=== PATIENT | male | born 1985 | race African-American/Black ===

== ENCOUNTER 2017-03-01 21:02 | Emergency (ER) | payer MEDICAID ==
[~2017-03-01] VITALS: Ht 175.3 cm; Wt 90.7 kg
[2017-03-01 21:35] VITALS: BP 121/67
== END 2017-03-02 00:15 | disposition left against medical advice (07) ==
LOC: ER 21:02
DX: R05 Cough (principal); Z53.21 Procedure and treatment not carried out due to patient leaving prior to being seen by health care provider

== ENCOUNTER 2017-05-10 13:56 | Emergency (ER) | payer MEDICAID ==
[~2017-05-10] VITALS: Ht 175.3 cm; Wt 77.1 kg
[2017-05-10 15:38] VITALS: BP 114/75
== END 2017-05-10 16:14 | disposition home or self-care (01) ==
LOC: ER 13:56
DX: S60.221A Contusion of right hand, initial encounter (principal); F17.210 Nicotine dependence, cigarettes, uncomplicated; Y04.0XXA Assault by unarmed brawl or fight, initial encounter; Y93.89 Activity, other specified; Y92.89 Other specified places as the place of occurrence of the external cause; Y99.8 Other external cause status
CPT/HCPCS: 73130

== ENCOUNTER 2018-03-06 04:14 | Emergency (ER) | payer MEDICAID ==
[~2018-03-06] VITALS: Ht 177.8 cm; Wt 86.2 kg
[2018-03-06 05:48] VITALS: BP 124/70
== END 2018-03-06 05:57 | disposition home or self-care (01) ==
LOC: ER 04:14
DX: M20.012 Mallet finger of left finger(s) (principal); F17.210 Nicotine dependence, cigarettes, uncomplicated
CPT/HCPCS: 73140

== ENCOUNTER 2022-03-29 17:57 | Emergency (ER) | payer MEDICAID ==
[~2022-03-29] VITALS: Ht 175.3 cm; Wt 104.5 kg
[2022-03-29] MEDS ORDERED: ONDA-144 PO (19:07)
[2022-03-29] MEDS ORDERED: HYDR-4902 PO (19:07)
[2022-03-29 19:37] VITALS: BP 138/71
== END 2022-03-29 19:46 | disposition home or self-care (01) ==
LOC: ER 17:57
DX: S16.1XXA Strain of muscle, fascia and tendon at neck level, initial encounter (principal); J45.909 Unspecified asthma, uncomplicated; Z79.899 Other long term (current) drug therapy; Z88.8 Allergy status to other drugs, medicaments and biological substances; X58.XXXA Exposure to other specified factors, initial encounter; Y93.89 Activity, other specified; Y92.89 Other specified places as the place of occurrence of the external cause; Y99.8 Other external cause status

== ENCOUNTER 2022-10-02 08:53 | Emergency (ER) | payer MEDICAID ==
[~2022-10-02] VITALS: Ht 175.3 cm; Wt 108.6 kg
[~2022-10-02 08:53] MED LIST: HYDR-4902 PO; ONDA-144 PO
[2022-10-02 09:41] VITALS: BP 136/68
[2022-10-02] MEDS ORDERED: ACETAMINOPHEN 500 MG TAB PO ONE (10:00)
[2022-10-02 10:16] LABS: Urine Bacteria NONE SEEN /hpf (None Seen); Urine Blood Negative /uL (Negative); Urine Specific Gravity 1.006 (1.001-1.035); Urine WBC <1 /hpf (0 - 3)
[2022-10-02] MEDS ORDERED: LIDO5PAD8 EX (10:28)
[2022-10-02] MEDS ORDERED: ACET-1079 PO (10:28)
== END 2022-10-02 10:35 | disposition home or self-care (01) ==
LOC: ER 08:53
DX: S39.012A Strain of muscle, fascia and tendon of lower back, initial encounter (principal); J45.909 Unspecified asthma, uncomplicated; R56.9 Unspecified convulsions; Z88.6 Allergy status to analgesic agent; X58.XXXA Exposure to other specified factors, initial encounter; Y93.89 Activity, other specified; Y92.89 Other specified places as the place of occurrence of the external cause; Y99.8 Other external cause status
CPT/HCPCS: 72100; 81001

== ENCOUNTER 2022-12-02 14:46 | Emergency (ER) | payer MEDICAID ==
[~2022-12-02] VITALS: Ht 175.3 cm; Wt 103.0 kg
[~2022-12-02 14:46] MED LIST changes: +ACET-1079 PO; +LIDO5PAD8 EX
[2022-12-02 19:04] VITALS: BP 127/67; PULSE 97; RESP 20; TEMP 97.3; O2SAT 98
== END 2022-12-02 20:06 | disposition left against medical advice (07) ==
LOC: ER 14:46
DX: J02.9 Acute pharyngitis, unspecified (principal); R23.8 Other skin changes